=== PATIENT | male | born 1980 | race African-American/Black ===

== ENCOUNTER 2019-08-12 16:47 | Emergency (ER) | payer MEDICAID ==
[~2019-08-12] VITALS: Ht 172.7 cm; Wt 73.0 kg
[2019-08-12] MEDS ORDERED: MORPHINE SULFATE 4 MG/ML SYR/VIAL IV ONE (18:30)
[2019-08-12] MEDS ORDERED: ONDANSETRON HCL 4 MG/2 ML VIAL IV ONE (18:30)
[2019-08-12] MEDS ORDERED: ceFAZolin 1GM/50ML 100 ML IV ONE (20:30)
[2019-08-12] MEDS ORDERED: SODIUM CHLORIDE 0.9% 1,000 ML IV ONE (20:30)
[2019-08-12 21:48] VITALS: BP 119/76
== END 2019-08-12 22:53 | disposition home or self-care (01) ==
LOC: ER 16:47 → EDBD 16:47 → ER 22:53
DX: S02.32XA Fracture of orbital floor, left side, initial encounter for closed fracture (principal); S22.41XA Multiple fractures of ribs, right side, initial encounter for closed fracture; S01.111A Laceration without foreign body of right eyelid and periocular area, initial encounter; F17.210 Nicotine dependence, cigarettes, uncomplicated; F12.90 Cannabis use, unspecified, uncomplicated; Y08.89XA Assault by other specified means, initial encounter; Y93.89 Activity, other specified; Y99.8 Other external cause status; Y92.89 Other specified places as the place of occurrence of the external cause
CPT/HCPCS: 12011; 70450; 70486; 71101; 72125; 74176; 96365; 96375; 99284; J0690; J2270; J2405; J7030